=== PATIENT | male | born 1955 | race Caucasian/White ===

== ENCOUNTER 2021-12-19 00:57 | Day surgery (SDC) | payer MEDICARE, OTHER, SELFPAY ==
[2021-12-12 09:27] VITALS: BMI 25.9
--- NOTE | 2021-12-18 14:02 | WPDGICN ---
Assessment and Plan Assessment and plan (1) Colon cancer screening: Code(s): Z12.11 - Encounter for screening for malignant neoplasm of colon Status: Acute Assessment and Plan: Colonoscopy with possible biopsy or polypectomy or cautery or injection of substances. GI Consult Note Consult date/time: 12/18/21 14:02 HPI: Theron Lipscomb is a 66 year old male Referred because he was found have a positive Cologuard test. He has no family history of colon cancer. He has not seen blood in his stools. Review of Systems Review of Systems: All systems reviewed & are unremarkable except as noted in HPI and below PMFSH Past Medical History Medical History HTN (hypertension) Surgical History Surgical History H/O colonoscopy Social History Social History Smoking status: Never smoker Alcohol intake: current Drinks per week: 14 Alcohol use details: 2 glasses of wine nightly Substance use: never Substance use type: does not use Living arrangements: with family Spiritual care concerns: No Meds Home Medications and Allergies Home Medications Medication Instructions Recorded Confirmed Type lisinopril 20 mg PO DAILY 12/12/21 12/12/21 History sildenafil (pulm.hypertension) 20 mg PO DAILY 12/12/21 12/12/21 History Allergies Allergy/AdvReac Type Severity Reaction Status Date / Time No Known Allergies Allergy Verified 12/19/21 06:19 Exam Const: General: alert Orientation/consciousness: patient oriented x3 Resp: Auscultation: clear to auscultation bilaterally Cardio: Rhythm: regular rhythm GI: GI Palp: Yes Soft to palpation and No Tenderness to palpation present (GI) Neuro: General: patient oriented x3
[2021-12-19 06:20] VITALS: BP 154/100; PULSE 88; RESP 18; TEMP 36.6; O2SAT 100; BMI 23.6
[2021-12-19] MEDS: LACTATED RINGERS 1,000 ML 150 ML IV CONT (06:30)
--- NOTE | 2021-12-19 06:47 | WPDANESEPPF ---
Anes - Initial Pre Proc Eval Procedure: Operation Date: 12/19/21 07:30 Proposed Procedures p Colonoscopy - Sonido Art MD Date/Time: 12/19/21 06:47 Surgeon: Sonido Art MD Pre Op Diagnosis: positive cologuard Patient Data Age: 66 Gender: M Height: 1.7 m Weight: 68.6 kg Last Vital Signs Temp 36.6 C 12/19/21 06:20 Pulse 88 12/19/21 06:20 Resp 18 12/19/21 06:20 BP 154/100 H 12/19/21 06:20 Pulse Ox 100 12/19/21 06:20 Allergies Allergy/AdvReac Type Severity Reaction Status Date / Time No Known Allergies Allergy Verified 12/19/21 06:19 Home Medications Medication Instructions Recorded Confirmed Type lisinopril 20 mg PO DAILY 12/12/21 12/12/21 History sildenafil (pulm.hypertension) 20 mg PO DAILY 12/12/21 12/12/21 History Patient hx anesthesia problems: none Family hx anesthesia problems: none Results Review: All pre-operative results and documents have been reviewed as part of the pre-operative evaluation. [facility] Past Medical History Medical History (Updated 12/19/21 @ 06:47 by Theron Negrete MD) HTN (hypertension) Surgical History Surgical History (Updated 12/19/21 @ 06:47 by Theron Negrete MD) H/O colonoscopy Social History Social History Smoking status: Never smoker Alcohol intake: current Drinks per week: 14 Alcohol use details: 2 glasses of wine nightly Substance use: never Substance use type: does not use Living arrangements: with family Spiritual care concerns: No Anes - Eval Final PreProcedure Day of Procedure 12/19/21 06:47 Patient weight: normal Heart: regular rate and rhythm Lungs: clear to auscultation Airway: Mallampati scale class II Neurological: alert and oriented Last oral intake: >/= 8 hours ASA classification: II Emergent: no Anesthetic plan: proceed Anesthesia type and monitoring: general GIVS and standard monitoring Results Review: All pre-operative results and documents have been reviewed as part of the pre-operative evaluation. Informed Consent: The patient's anesthetic plan and its attendant risks and benefits were discussed with the patient/family/POA. Questions were solicited and answers provided to the satisfaction of the patient/family/POA.
[2021-12-19 07:55] VITALS: BP 120/84; PULSE 77; RESP 21; O2SAT 100
[2021-12-19 08:05] VITALS: BP 148/99; PULSE 75; RESP 17; O2SAT 100
[2021-12-19 08:15] VITALS: BP 152/99; PULSE 78; RESP 18; O2SAT 100
== END 2021-12-19 08:26 | disposition home or self-care (01) ==
PROVIDERS: PCP Internal Medicine; Visit Provider Internal Medicine Gastroenterology
PROC: 0DJD8ZZ Inspection of Lower Intestinal Tract, Via Natural or Artificial Opening Endoscopic (ICD-10-PCS; CPT 45378; principal; 2021-12-19 07:30)
DX: Z12.11 Encounter for screening for malignant neoplasm of colon (principal); D12.8 Benign neoplasm of rectum; D12.5 Benign neoplasm of sigmoid colon; K63.5 Polyp of colon; K57.30 Diverticulosis of large intestine without perforation or abscess without bleeding; R19.5 Other fecal abnormalities; I10 Essential (primary) hypertension
CPT/HCPCS: 45385; 45380; 88305; J2704; J7120

== ENCOUNTER 2023-01-25 11:42 | Outpatient (CLI) | payer MEDICARE, OTHER, SELFPAY ==
--- NOTE | 2023-01-25 12:48 | ECG_ITS ---
Measurements Intervals [place] Rate: 72 P: 81 [place]: 142 QRS: 67 QRSD: 98 T: 63 QT: 416 QTc: 457 Interpretive Statements SINUS RHYTHM NONSPECIFIC T-WAVE ABNORMALITY BORDERLINE ECG NO PREVIOUS ECG AVAILABLE FOR COMPARISON Electronically Signed On 01-25-2023 16:07:39 CDT by Antonio Tipton M.D.
[2023-01-25 13:33] LABS: Basophils Absolute Auto 0.1 K/mm3 (0.0-0.1); Basophils Percent Auto 0.7 % (0.2-1.2); Eosinophils Absolute Auto 0.1 K/mm3 (0-0.3); Eosinophils Percent Auto 1.3 % (0-4.4); Hematocrit 46.3 % (42.0-52.0); Hemoglobin 15.3 g/dL (14.0-18.0); Immature Granulocyte Absolute 0.04 K/mm3 (0.00-0.031); Immature Granulocyte Percent A 0.4 % (0-0.5); Lymphocytes Absolute Auto 2.07 K/mm3 (0.9-3.2); Mean Corpuscular Hemoglobin 31.3 pg (26-34); Mean Corpuscular Volume 94.7 fl (80-100); Mean Platelet Volume 9.5 fl (7.4-10.4); Monocytes Absolute Auto 0.9 K/mm3 (0.1-0.6); Monocytes Percent Auto 8.2 % (2.6-8.5); Neutrophils Absolute Auto 7.7 K/mm3 (1.3-6.7); Neutrophils Percent Auto 70.4 % (45.5-73.1); Platelet Count Result 331 k/mm3 (150-375); Red Blood Count 4.89 M/mm3 (4.6-6.20); Red Cell Distribution Width 12.1 % (11.5-14.5); White Blood Count 10.9 K/mm3 (4.5-10.0)
[2023-01-25 13:42] LABS: Albumin Level 4.6 g/dL (3.5-5.1); Anion Gap 5 mmol/L (8-16); Blood Urea Nitrogen 20 mg/dL (9-20); Calcium 9.2 mg/dL (8.4-10.2); Carbon Dioxide 31 mmol/L (22-30); Chloride 102 mmol/L (98-107); Estimated Glomerular Filt Rate > 60; Glucose 80 mg/dL (65-110); Potassium 4.4 mmol/L (3.4-5.0); Sodium 138 mmol/L (137-145)
[2023-01-25 13:46] LABS: Urine Cotinine NEGATIVE
[2023-01-25 13:58] LABS: Hemoglobin A1C 5.3 % (<5.7)
== END 2023-01-25 11:43 | disposition home or self-care (01) ==
LOC: ANHSURGERY 11:47
PROVIDERS: PCP Internal Medicine; Visit Provider Orthopaedic Surgery
DX: M16.11 Unilateral primary osteoarthritis, right hip (principal); Z01.818 Encounter for other preprocedural examination; R94.31 Abnormal electrocardiogram [ECG] [EKG]
CPT/HCPCS: 80048; 80307; 82040; 83036; 85025; 87081; 93005

== ENCOUNTER 2023-02-01 10:03 | Outpatient (CLI) | payer MEDICARE, OTHER, SELFPAY | END 2023-02-01 10:04 | disposition home or self-care (01) | LOC: ANHSURGERY 10:06 | PROVIDERS: PCP Internal Medicine; Visit Provider Orthopaedic Surgery | DX: M16.11 Unilateral primary osteoarthritis, right hip (principal); Z01.818 Encounter for other preprocedural examination | CPT/HCPCS: 87081 ==

== ENCOUNTER 2023-02-08 00:44 | Day surgery (SDC) | payer MEDICARE, OTHER, SELFPAY ==
--- NOTE | 2023-01-25 11:44 | PC.NURSE ---
PRE-OP INSTRUCTIONS, PLEASE READ CAREFULLY Report to the Outpatient Waiting Room, entrance under the green pavilion located off [facility], at time _0600_ on date _02/08/23_. Planned Procedure Time: _0730_. PACK A SMALL OVERNIGHT BAG AND LEAVE IN THE CAR ALONG WITH YOUR WALKER Time changes happen often and if your time is changed the preop area will call you the afternoon before. - You and your visitor will be asked to self-screen and do not enter if you have any COVID symptoms. - A mask is optional within the hospital at this time. -VISITING HOURS 8AM-8PM Patients may have clear liquids (water, carbonated beverages, clear teas, apple juice) until 3 hours prior to surgery (0430 AM) with a maximum of 20 ounces. - No food from midnight until time of surgery Take the following medications with a SIP of water the morning of surgery: _NONE_ DO NOT STOP ANY OF YOUR OTHER PRESCRIPTION MEDICATIONS PRIOR TO SURGERY ?EXCEPT THE FOLLOWING Medications to discontinue per _DICLOFENAC 7 DAYS PRIOR TO SURGERY, Date to take last dose 01/31/23_ Please no make-up, nail danish, hairspray, perfume, deodorant, or body powder the day of surgery. No jewelry (including any body piercings) or valuables the day of surgery, leave them at home. Please take a shower or bath the night before, or the morning of, surgery with an antibacterial soap. Wear comfortable, loose fitting clothing. Children are encouraged to wear pajamas. - Jewelry must be removed prior to entering the operating room. Rings and piercings that are not removed may be cut off. - The hospital will not accept responsibility for valuables. - Please leave all valuables, including medications, at home the day of surgery. If you are going home after surgery, a licensed putaway driver must drive you home. - NO public transportation without another adult if you receive anesthesia. - We recommend that an adult stay with you for 24 hours following discharge. - We also recommend that you do not drive, make important decision, drink alcoholic beverages, or take any drugs that were not prescribed by your health care provider for at least 24 hours after your discharge time. Follow any additional instructions given to you from your surgeon. If you or anyone in your household have experienced Covid symptoms in the past week, please notify your surgeon or the nurse liaison at the phone number below for possible testing. Telephone instructions given to _PATIENT & SPOUSE (SHO)__and asked if any additional questions and then verbalized understanding. Patient advised to call surgeon office or pre surgery nurse liaison [phone] if any additional questions.
[2023-01-25 12:12] VITALS: BP 170/92; PULSE 66; RESP 20; TEMP 36.8; O2SAT 100; BMI 23.1
--- NOTE | 2023-02-05 12:53 | PM.IMHP ---
H&P: HPI History of Present Illness Date/Time: 02/05/23 12:53 Chief Complaint: Severe osteoarthritis right hip Narrative: 67-year-old male patient of Dr. Swan who presents today for a right anterior total hip arthroplasty. Patient has been having symptoms in his hips for years. Last year has gotten a lot worse. Patient has been taking diclofenac recently and this has helped a little bit with his symptoms. He does have severe type 1 osteoarthritis in the right hip. Patient feels that he is having symptoms bad enough on a daily basis that are affecting his daily life that he would rather proceed with surgery at this point rather continue nonsurgical treatment. Most of his pain is in the anterior groin and proximal thigh. Review of Systems Review of Systems: All systems reviewed & are unremarkable except as noted in HPI and below PMFSH Past Medical History Medical History HTN (hypertension) Surgical History Surgical History H/O colonoscopy Social History Social History Smoking status: Never smoker Second hand tobacco smoke exposure: No Additional smoking assessment comments: PT DENIES ALL FORMS OF TOBACCO USE Alcohol intake: current Drinks per week: 14 Alcohol use details: 2 GLASSES WINE/NIGHT Substance use: current Substance use type: marijuana Other substance usage details: 1-2 HITS 2-3 XWEEK FOR SLEEP Last use: 01/22/23 Living arrangements: with family Spiritual care concerns: No Meds Home Medications and Allergies Home Medications Medication Instructions Recorded Confirmed Type lisinopril 20 mg tablet 20 mg PO DAILY 12/12/21 01/25/23 History sildenafil (pulm.hypertension) 20 20 mg PO DAILY PRN Sexual Activity 12/12/21 01/25/23 History mg tablet Ketocomnazole See Rx Instructions .Route 01/25/23 01/25/23 History .COMPLEX PRN Itching celecoxib 200 mg capsule (Celebrex) 200 mg PO DAILY 01/25/23 01/25/23 History diclofenac sodium 75 mg 75 mg PO BID 01/25/23 01/25/23 History tablet,delayed release magnesium 200 mg tablet 400 mg PO DAILY 01/25/23 01/25/23 History Allergies Allergy/AdvReac Type Severity Reaction Status Date / Time No Known Allergies Allergy Verified 01/25/23 12:03 Exam Narrative: 67-year-old male alert pleasant. He is 5 ft 6 and 155 lb. His right hip flexes to 90? with lateral hip and anterior groin pain. Internal rotation is 0 external rotation to 20 both causing him the same groin pain. Stinchfield maneuver caused him lateral hip and anterior groin pain. He has normal abduction strength and minimal tenderness over the greater trochanter. Skin around the hip and groin crease are normal. 2+ posterior artery pulse absent dorsalis pedis pulse. No edema in lower extremity. He walks with a mild limp. Resp: Auscultation: clear to auscultation bilaterally Cardio: Rate: regular rate Rhythm: regular rhythm Assessment and Plan Assessment and plan (1) Hip arthritis: Code(s): M16.10 - Unilateral primary osteoarthritis, unspecified hip Status: Acute Plan 67-year-old male who has severe osteoarthritis of the right hip with continued symptoms. Again he feels this point is ready to proceed with total hip arthroplasty rather continue to treat this nonsurgically. Surgical procedures well as the risks and complications were discussed in detail all questions were answered and we will proceed. Patient will stop his diclofenac 1 week prior to surgery and start Celebrex 200 mg. He will see his primary care doctor pre-surgical clearance. We will plan use Eliquis for DVT prophylaxis postoperatively. The patient has Chem panel is all within normal limits creatinine 0.70 hemoglobin is 15.3 and platelets were 331. Patient's nasal swab was negative
[2023-02-08] VITALS (15 sets, daily range): BP systolic 107–172; BP diastolic 64–92; PULSE 57–112; RESP 14–20; TEMP 36–37.3; O2SAT 95–100
--- NOTE | ~2023-02-08 | XR_ITS ---
EXAMINATION: XR hip RT 1V w AP pelvis DATE: 02/08/2023 12:33 INDICATION: Anterior approach right total hip arthroplasty TECHNIQUE: Anteroposterior and cross-table lateral views of the right hip were obtained. COMPARISON: None. FINDINGS: Noncemented right total hip arthroplasty which appears well seated in near anatomic alignment. Surgic al drain and small amount of gas are seen at the operative bed. No fracture. Mild osteoarthritis at t he left hip. Gamble catheter. IMPRESSION: 1. Right total hip arthroplasty in near-anatomic alignment, negative for postoperative purposes. Reviewed, dictated and finalized at location B. IMPRESSION: 1. Right total hip arthroplasty in near-anatomic alignment, negative for postop erative purposes.
--- NOTE | ~2023-02-08 | XR_ITS ---
EXAMINATION: XR surgery orthopedic DATE: 02/08/2023 10:58 INDICATION: Right hip arthroplasty. TECHNIQUE: A single intraoperative fluoroscopic view of right hip was comparison obtained. I was not present. Fluoroscopy exposure time was 49 seconds. COMPARISON: None. FINDINGS: There is a total right hip arthroplasty in near-anatomic alignment. No fracture. IMPRESSION: 1. Total right hip arthroplasty in near-anatomic alignment. Reviewed, dictated and finalized at location A.
[2023-02-08] MEDS: ACETAMINOPHEN 500 MG TABLET 1000 MG PO ×2 (06:09→13:20)
[2023-02-08] MEDS: VANCOMYCIN 1,000 MG/NS 250 ML BAG 250 MG IVPB (06:30)
[2023-02-08] MEDS: LACTATED RINGERS 1,000 ML 30 ML IV CONT ×2 (06:30→11:20)
[2023-02-08] MEDS: TRANEXAMIC ACID 1,000MG/ISO100 1,000 MG/100 ML BAG 200 MG IVPB (07:00)
--- NOTE | 2023-02-08 07:08 | WPDANESEPPF ---
Anes - Initial Pre Proc Eval Procedure: Operation Date: 02/08/23 07:30 Proposed Procedures p Right Total Hip Arthroplasty Anterior Approach - Fran Pimentel MD Date/Time: 02/08/23 07:08 Surgeon: Fran Pimentel MD Pre Op Diagnosis: oa right hip Patient Data Age: 67 Gender: M Height: 1.7 m Weight: 67.4 kg Last Vital Signs Temp 36.2 C L 02/08/23 06:36 Pulse 57 L 02/08/23 06:36 Resp 16 02/08/23 06:36 BP 172/91 H 02/08/23 06:36 Pulse Ox 100 02/08/23 06:36 O2 Del Method Room Air 02/08/23 06:36 Allergies Allergy/AdvReac Type Severity Reaction Status Date / Time No Known Allergies Allergy Verified 02/08/23 06:06 Home Medications Medication Instructions Recorded Confirmed Type lisinopril 20 mg tablet 20 mg PO DAILY 12/12/21 02/08/23 History sildenafil (pulm.hypertension) 20 20 mg PO DAILY PRN Sexual Activity 12/12/21 02/08/23 History mg tablet Ketocomnazole See Rx Instructions .Route 01/25/23 02/08/23 History .COMPLEX PRN Itching celecoxib 200 mg capsule (Celebrex) 200 mg PO DAILY 01/25/23 02/08/23 History diclofenac sodium 75 mg 75 mg PO BID 01/25/23 02/08/23 History tablet,delayed release magnesium 200 mg tablet 400 mg PO DAILY 01/25/23 02/08/23 History Patient hx anesthesia problems: none Family hx anesthesia problems: none Results Review: All pre-operative results and documents have been reviewed as part of the pre-operative evaluation. [facility] Past Medical History Medical History HTN (hypertension) Surgical History Surgical History H/O colonoscopy Social History Social History Smoking status: Never smoker Second hand tobacco smoke exposure: No Additional smoking assessment comments: PT DENIES ALL FORMS OF TOBACCO USE Alcohol intake: current Drinks per week: 14 Alcohol use details: 2 GLASSES WINE/NIGHT Substance use: current Substance use type: marijuana Other substance usage details: 1-2 HITS 2-3 XWEEK FOR SLEEP Last use: 01/22/23 Living arrangements: with family Spiritual care concerns: No Anes - Eval Final PreProcedure Day of Procedure 02/08/23 07:08 Patient weight: normal Heart: regular rate and rhythm Lungs: clear to auscultation Airway: Mallampati scale class III Neurological: alert and oriented Last oral intake: >/= 8 hours ASA classification: III Emergent: no Anesthetic plan: proceed Anesthesia type and monitoring: general ETT and standard monitoring Results Review: All pre-operative results and documents have been reviewed as part of the pre-operative evaluation. Informed Consent: The patient's anesthetic plan and its attendant risks and benefits were discussed with the patient/family/POA. Questions were solicited and answers provided to the satisfaction of the patient/family/POA.
--- NOTE | 2023-02-08 07:13 | WPDHPUPDATE1 ---
History and Physical Update Update Date/Time: 02/08/23 07:13 History and Physical has been reviewed, including an updated exam of the patient. There are NO changes in the patient's condition. Risks, benefits, and alternatives have been discussed and questions answered. Patient agrees to proceed with procedure.
[2023-02-08] MEDS: ceFAZolin 2 GM/D5W 50 ML 2 GM/50 ML BAG IVPB (07:27)
[2023-02-08] MEDS: ceFAZolin SODIUM 1 GM VIAL 3 GM (08:17)
[2023-02-08] MEDS: ceFAZolin SODIUM 1 GM VIAL IV PUSH (10:33)
[2023-02-08] MEDS: TRANEXAMIC ACID 1,000 MG/10 ML AMPUL 1000 MG IV PUSH (10:35)
--- NOTE | 2023-02-08 10:56 | W.PM.PROC2 ---
Procedure Note - Detailed Date of Procedure 02/08/23 Pre-op Diagnosis oa right hip Post-op Diagnosis Same Procedure Performed Right total hip arthroplasty direct anterior approach Surgeon Fran Pimentel MD Exercise Manager Aleksey Harry Anesthesia General Description of Procedure Patient was brought to the operating room and general anesthesia was administered. he received 2 g of Ancef weight based vancomycin 1 g of tranexamic acid preoperatively. The feet were padded and the boots applied and the patient transferred to the OS [place] table the right hip prepped draped usual fashion. A 10 cm longitudinal incision was made starting 3 cm lateral to the ASIS. Dissection was carried down to the fascia over the tensor fascia yves which was incised longitudinally over the midportion of the TFL and elevated off the anterior 50% of the TFL muscle. The interval between TFL and rectus femoris developed and crossing branches of ascending lateral femoral circumflex vessels were ligated with suture and divided. Capsule was of exposed anterior retractor placed. The hip abducted internally rotated and the gluteus minimus elevated off the lateral capsule. Standard inverted T capsulotomy was utilized. Femoral neck osteotomy was made according to templating. The femoral head was removed. It was mushroom shaped quite over sized peripherally with huge circumferential osteophytes which were also present on the femoral neck and these were debrided. The acetabulum was exposed. There was a large broken osteophyte posteriorly which was removed and the posterior acetabular wall was quite eburnated. There was also eburnation anterior superiorly in the acetabulum and a huge anterior superior osteophyte. There is also a very large osteophyte inferiorly such that the fovea was completely obliterated. The leg was externally rotated and extended. Removed about 1/2 inch of the tip of the lateral capsule for exposure. There was enough mobility that I did not feel that any release of the conjoined tendon was necessary so this was left alone. Leg was brought back in external rotation and horizontal position traction acetabulum exposed and we carefully under fluoro gradually medialized with a 42 Reamer until the teardrop was exposed. This allowed to us to remove the bridging inferior osteophyte that is band the location of the inferior acetabular ligament. We then reamed with the 45 Reamer and worked up to 49 Reamer and the 49 trial was quite tight. We reamed to the 50 lightly and we found the 50 trial also tight but it seated fully. We chose the 50 pinnacle cup and this was impacted and seated fully at 40? of abduction and appropriate anteversion. Excellent Press-Fit was achieved. This left about 4 or 5 mm of the superior posterior superior shell uncovered. It fit line to line with the posterior rim of the acetabulum and was well under a huge anterior osteophyte. A single screw was placed in the ilium and the 32 inner diameter liner placed without difficulty. We then proceeded to remove the residual inferior acetabular osteophyte and the anterior and anterior superior acetabular osteophyte. We were careful to remove all bone fragments minimize development of heterotopic ossification. The femur was then externally rotated extended and we broached up to a size 5 which had a little bit of torsional wiggle and we broach the size 6 and trialed. The +1 head with the high offset neck was just a little bit loose and the +5 was tight. The. We looked at fluoroscopic AP pelvis +5. Offset was appropriate equal to the other side but we were about 3 or 4 mm longer the other side I felt. We calcar planed and carefully countersunk the broach another 2.5 mm and this had appropriate Shuck but good stability and I felt it had optimal soft tissue tension and it looked about 1 or 2 mm longer than the other side using the lesser trochanters and a line across the erector operator foramina which matched our preoperati
--- NOTE | 2023-02-08 11:24 | P.OPB_ITS ---
Procedure Note - Brief Procedure Note - Brief Date of procedure: 02/08/23 oa right hip Procedure performed: Right anterior total hip arthroplasty Surgeon: WALTER Alvarez Description of procedure: 67-year-old male who underwent right anterior total hip arthroplasty 02/08. I was involved procedure including position patient on the OR table as well as 1st election assistant to the time of surgery. Total time spent was 4hours
[2023-02-08] MEDS: fentaNYL CITRATE INJ (*CRX) 100 MCG/2 ML VIAL 25 MCG IV PUSH ×5 (11:25→12:34)
[2023-02-08] MEDS: SODIUM CHLORIDE 0.9% IV 1,000 ML 125 ML IV CONT (13:00)
--- NOTE | 2023-02-08 13:05 | ADMGEN ---
This patient, Theron Lipscomb, was admitted to Medical Room 257-01. Patient/family oriented to hospital policies and general routines including ID bracelet, bed and alarms, visiting hours, pain management, procedures, bathroom and other care routines, personal items, smoking policy, room service/diet, and visiting hours. Information on how to activate the Rapid Response Team has been discussed. Patient/Family are encouraged to report perceived risks to care and to ask questions if they do not understand what they are told or what they should do.
[2023-02-08] MEDS: oxyCODONE HCL (*CRX) 5 MG TAB IR PO ×2 (13:20→18:49)
[2023-02-08] MEDS: ONDANSETRON INJ 4 MG/2 ML VIAL IV PUSH (13:29)
[2023-02-08] MEDS: MORPHINE SULFATE (*CRX) 2 MG/ML INJ IV PUSH (14:11)
--- NOTE | 2023-02-08 15:42 | PCPTNOTE ---
On 02/08/23, the student, [Stacey Gallo], provided care and completed [facility] documentation on this patient. I have reviewed the student's documentation and agree with the findings.
[2023-02-08] MEDS: ceFAZolin 1 GM/NS 50 ML 1 GM/50 ML BAG IVPB (15:48)
[2023-02-08] MEDS: KETOROLAC 15 MG/ML VIAL (*BKC) IV PUSH ×2 (15:48→21:30)
[2023-02-08] MEDS: diphenhydrAMINE HCl INJ 50 MG/ML VIAL IV PUSH (18:21)
[2023-02-08] MEDS: VANCOMYCIN 1,000 MG/NS 250 ML 1,000 MG/250 ML BAG 250 MG IVPB (18:47)
[2023-02-08] MEDS: FAMOTIDINE 20 MG TABLET PO (21:30)
[2023-02-09] MEDS: ACETAMINOPHEN 500 MG TABLET 1000 MG PO ×2 (00:27→05:15)
[2023-02-09] MEDS: oxyCODONE HCL (*CRX) 5 MG TAB IR PO ×3 (00:27→05:15)
[2023-02-09] MEDS: ceFAZolin 1 GM/NS 50 ML 1 GM/50 ML BAG IVPB (00:31)
[2023-02-09 05:21] VITALS: BP 107/62; PULSE 78; RESP 15; TEMP 37.3; O2SAT 97
[2023-02-09 06:09] LABS: Basophils Percent Auto 0.3 % (0.2-1.2); Eosinophils Percent Auto 0.2 % (0-4.4); Hematocrit 36.1 % (42.0-52.0); Hemoglobin 11.8 g/dL (14.0-18.0); Immature Granulocyte Absolute 0.04 K/mm3 (0.00-0.031); Immature Granulocyte Percent A 0.3 % (0-0.5); Lymphocytes Absolute Auto 1.81 K/mm3 (0.9-3.2); Lymphocytes Percent Auto 14.2 % (18.3-44.2); Mean Corpuscular HGB Conc 32.7 g/dl (32-36); Mean Corpuscular Hemoglobin 31.2 pg (26-34); Mean Corpuscular Volume 95.5 fl (80-100); Mean Platelet Volume 10.1 fl (7.4-10.4); Monocytes Absolute Auto 1.5 K/mm3 (0.1-0.6); Neutrophils Absolute Auto 9.3 K/mm3 (1.3-6.7); Platelet Count Result 194 k/mm3 (150-375); Red Blood Count 3.78 M/mm3 (4.6-6.20); White Blood Count 12.8 K/mm3 (4.5-10.0)
[2023-02-09 06:17] LABS: Anion Gap 1 mmol/L (8-16); Blood Urea Nitrogen 14 mg/dL (9-20); Carbon Dioxide 30 mmol/L (22-30); Chloride 106 mmol/L (98-107); Estimated CRCL calculation 72 ml/min; Estimated Glomerular Filt Rate > 60; Glucose 95 mg/dL (65-110); Potassium 3.3 mmol/L (3.4-5.0); Sodium 137 mmol/L (137-145)
[2023-02-09] MEDS: VANCOMYCIN 1,000 MG/NS 250 ML 1,000 MG/250 ML BAG 200 MG IVPB (06:19)
--- NOTE | 2023-02-09 08:12 | PM.DS ---
DS: Admitting Diagnosis Discharge Date February 09, 2023 Admitting Diagnosis Advanced osteoarthritis right hip DS: Discharge Diagnosis Discharge Diagnosis Plan Right total hip arthroplasty DS: Summary Hospital Course Reason for hospitalization: Patient was admitted for antibiotics overnight and physical therapy following his right total hip arthroplasty Hospital Course: Patient has had an unremarkable postoperative course except for rather severe nausea and some vomiting yesterday which did not respond to Zofran or hydroxyzine but responded extremely well to 50 mg IV Benadryl. He has had no further nausea since yesterday afternoon. He has been with physical therapy yesterday and up to the bathroom several times last night and has minimal discomfort in his right hip and is bearing full weight without difficulty using the walker for balance. His BMP is normal except for calcium of 8.0 this morning and his hemoglobin is 11.8 platelets [id number]. His wound is dry without swelling. He has no swelling in the leg has intact sensation and motor function of the right foot is alert and oriented and doing very well. He is ready to be discharged after morning physical therapy. He it is to follow-up with me in about 10 days in the office and if he has any problems he is instructed to call. Time Spent with Patient Time attestation: Total time spent providing and/or coordinating discharge services: DS: Data Data Completed and Pending Labs on day of discharge: Labs from last 24 hours 02/09/23 05:32 WBC 12.8 H RBC 3.78 L Hgb 11.8 L D Hct 36.1 L MCV 95.5 MCH 31.2 MCHC 32.7 RDW 13.0 Plt Count 194 MPV 10.1 Immature Gran % (Auto) 0.3 Neut % (Auto) 73.0 Lymph % (Auto) 14.2 L [place] % (Auto) 12.0 H Eos % (Auto) 0.2 Baso % (Auto) 0.3 Lymph # (Auto) 1.81 [place] # (Auto) 1.5 H Eos # (Auto) 0.0 Baso # (Auto) 0.0 Abs Immat Gran (auto) 0.04 H Absolute Neuts (auto) 9.3 H Absolute Nucleated RBC 0.0 Nucleated RBC % 0.0 Sodium 137 Potassium 3.3 L Chloride 106 Carbon Dioxide 30 Anion Gap 1 L BUN 14 D Creatinine 0.80 Estim Creat Clear Calc 72 Estimated GFR > 60 Glucose 95 Calcium 8.0 L Discharge Plan Discharge Patient Disposition: Home, Self-Care Discharge Instructions: [facility], [facility] [address] [place] [address] POST-OPERATIVE DISCHARGE INSTRUCTIONS ANTERIOR TOTAL HIP ARTHROPLASTY 1. Move toes/feet up and down every hour while awake. 2. Be up walking every hour while awake. 3. Use cane in hand opposite of side of hip surgery or walker as comfort allows. Avoid sitting in a chair unless eating, receiving visitors or using the toilet. 4. When resting, lie on back with leg elevated above heart to minimize swelling. Significant swelling could indicate a blood clot and if this occurs, call the office (or go to the ER) to have a venous ultrasound performed. 5. Wound Care: Keep dry sponge on wound for 2 weeks. Use minimal tape. 6. Follow weight bearing status as instructed. 7. May shower with dressing off. Please be sure to take the Celebrex for 9 more days for a total of 10 doses after surgery and then stop. This is to prevent heterotopic bone formation. Please take the stool softeners the docusate sodium sennosides (varsha Colace) and the MiraLax on a scheduled basis to prevent severe constipation which can occur while taking narcotics. When you no longer needs the oxycodone that he will no longer need the stool softeners. Do not take them as needed but take them on a scheduled basis as constipation can be quite severe. And make sure you do not take the diclofenac anymore. The Keflex for 7 days as to minimize the risk of infection occurring in your hip replacement. Stand Alone Forms: General Discharge Instructions Discharge Medications: New celecoxib [Celebrex] 200 mg Capsule 200 mg P
[2023-02-09] MEDS: FAMOTIDINE 20 MG TABLET PO (08:21)
[2023-02-09] MEDS: SENNA/DOCUSATE SODIUM TABLET 2 TAB PO (08:22)
[2023-02-09] MEDS: polyethylene glycoL 3350 17 GM POWD.PACK PO (08:23)
[2023-02-09] MEDS: CELECOXIB 200 MG CAPSULE PO (08:23)
[2023-02-09] MEDS: APIXABAN 2.5 MG TABLET PO (08:23)
[2023-02-09] MEDS: CEPHALEXIN 500 MG CAPSULE PO (08:51)
== END 2023-02-09 10:50 | disposition home or self-care (01) ==
LOC: ANHSURGERY 05:51 → ANH2MED 12:46
PROVIDERS: Physician Assistant Surgical; PCP Internal Medicine; Visit Provider Orthopaedic Surgery
PROC: (CPT 27130; principal; 2023-02-08 07:30)
DX: M16.11 Unilateral primary osteoarthritis, right hip (principal); R11.2 Nausea with vomiting, unspecified; I10 Essential (primary) hypertension
CPT/HCPCS: 27130; 36415; 73501; 80048; 85025; 86850; 86900; 86901; 97110; 97116; 97161; 97165; 97535; 99199; A9270; C1776; J0171; J0690; J1100; J1170; J1200; J1885; J2250; J2270; J2405; J2704; J2710; J2795; J3010; J3370; J7030; J7040; J7120

== ENCOUNTER → 2025-06-18 11:05 | Outpatient (REF) | payer MEDICARE, OTHER, SELFPAY ==
--- NOTE | 2025-06-18 11:05 | S_PTH ---
PATIENT: Theron Lipscomb LOC: [facility] U#:[id number] AGE/SX: 70/M ROOM: RE06/18/[address]: Titus Camp MD : 1955 BED: DIS: SPEC #: [id number] RECD: 06/18/25 12:59 STATUS: ASHLEE REDanny #: [id number] EMILE: 06/18/25 11:[address]: Titus Camp DEPT: [facility] Surgical RECD BY: Yuliet Rodriguez ENTERED: 06/18/25 12:59 SP TYPE: Surgical OTHR DR: Rajiv SwanMD Tissues: A - Skin Procedures: Hematoxylin and Eosin Stain Gross and Microscopic Level 4
--- OUTSIDE RECORDS SUMMARY | 2025-06-18 11:55 | XMS_ITS | Clinical Summary ---
Author Organization [facility] Address [address] Attn: [place] [id number] Care Team Providers Care Public Works Technician Name Role Phone Unavailable Primary Care Provider Unavailabl e Medications diclofenac sodium (VOLTAREN) 75 mg Tablet, Delayed Release (E.C.) Take 1 Tablet (75 mg) by mouth 2 times daily. 60 Tablet 1 11/20/2022 Active ALPRAZolam (Xanax) 0.25 mg tablet Take 1 Tablet (0.25 mg) by mouth 3 times daily as needed. 60 Tablet 2 01/29/2023 9:44 AM CDT 01/26/2023 Active celecoxib (CeleBREX) 200 mg capsule Take 1 Capsule (200 mg) by mouth daily. 9 Capsule 02/09/2023 11:18 AM CDT 02/09/2023 Active acetaminophen (TYLENOL) 500 mg tablet Take 2 Tablets (1,000 mg) by mouth every 6 hours. 120 Tablet 02/09/2023 Active polyethylene glycol (MIRALAX) 17 gram Powder in Packet Dissolve 1 Packet (17 Grams) in beverage and drink by mouth once daily in the morning. 30 Each 02/09/2023 11:18 AM CDT 02/09/2023 Active sennosides-docu sate sodium (SENNA-S) 8.6-50 mg tablet Take 2 Tablets by mouth 2 times daily. 120 Tablet 02/09/2023 11:18 AM CDT 02/09/2023 Active oxyCODONE (ROXICODONE) 5 mg tablet Take 1 Tablet (5 mg) by mouth every 4 hours as needed. Max Daily Amount: 30 mg 40 Tablet 02/09/2023 11:18 AM CDT 02/09/2023 Active lisinopriL (PRINIVIL) 40 mg tablet Take 1 tablet(s) by mouth daily 90 Tablet 12/04/2024 Active ketoconazole (NIZORAL) 2 % Shampoo Shampoo twice weekly to scalp 120 mL 6 06/06/2025 Active Encounters Date Type Department Care Team Description 05/15/2025 External Device Data [facility] ABSTRACTION Provider, Abstract 04/17/2025 External Device Data [facility] ABSTRACTION Provider, Abstract from Last 3 Months Social History Tobacco Use Types Packs/Day Years Used Date Smoking Tobacco: Never Assessed Sex and Gender Information Value Date Recorded Sex Assigned at Not on file Legal Sex Male 3:27 PM CDT Gender Identity Not on file Sexual Orientation Not on file Plan of Treatment Health Maintenance Due Date Last Done Comments DTAP/TDAP/TD VACCINES (1 - Tdap) 1973 COLORECTAL SCREENING 1999 Colorectal Cancer Screening 1999 FIT-DNA Q 3 years 1999 FIT/FOBT Q 1 year 1999 Flex Sig/CT Colonography Q 5 years 1999 PNEUMOCOCCAL VACCINE 50+ YEARS (1 of 1 - PCV) 06/11/20 04 ZOSTER VACCINE (1 of 2) 2004 INFLUENZA VACCINE (#1) 2025 RSV VACCINE (60+ or ) (1 - 1-dose 75+ series) 2029 Insurance RX [employer] (INTERNAL) [facility] [employer] RX [employer] Medicare Part D
--- OUTSIDE RECORDS SUMMARY | 2025-06-18 11:55 | XMS_ITS | Encounter Summary ---
Author Organization [facility] Address [address] [place] [address] Care Team Providers Care Pressure Steamer Tender Name Role Phone Rajiv Swan MD Primary Care Provider [phone] Encounter Details Date Type Department Care Team (Late st Contact Info) Description 03/27/2021 Lab Requisition [facility] DermPath Lab [address] [place] [phone] Domingo Pope MD [address], [place] [id number] Social History Tobacco Use Types Packs/Day Years Used Date Smoking Tobacco: Never Assessed Sex and Gender Information Value Date Recorded Sex Assigned at Not on file Legal Sex Male 4:25 PM CDT Gender Identity Not on file Sexual Orientation Not on file documented as of this encounter Plan of Treatment Not on file documented as of this encounter Procedures Procedure Name Priority Date/Time Associated Diagnosis Comments DERMATOPATHOLOGY Routine 03/25/2021 3:33 AM CDT documented in this encounter Results * DERMATOPATHOLOGY (03/25/2021 3:33 AM CDT) Case Report Dermatopathology Report Case: [id number] Authorizing Provider: Domingo Pope MD Collected: 03/25/2021 03:33 AM Ordering Location: [facility] DermPath Lab Received: 03/27/2021 08:00 AM Pathologist: Cinthya Mendez MD Specimens: A) - Skin, right clavicle B) - Skin, right upper back 12:49 PM CDT DERMATOPATHOLOGY LABORATORY Final Diagnosis Specimen A. SKIN, right clavicle: BASAL CELL CARCINOMA, NODULAR TYPE (C44.519) Specimen B. SKIN, right upper back: SEBORRHEIC KERATOSIS, MACULAR (L82.1) 12:49 PM CDT DERMATOPATHOLOGY LABORATORY at 1249 CDT Clinical History A: BCCA vs SCCA. Path # [id number]. B: Sk vs MM. Path # [id number]. 12:49 PM CDT DERMATOPATHOLOGY LABORATORY Gross Description Specimen A: Received is one formalin filled container labeled with the patient's name and designated right clavicle. The specimen consists of a shave biopsy measuring [id number]. Jar 0. Specimen B: Received is one formalin filled container labeled with the patient's name and designated right upper back. The specimen consists of a shave biopsy measuring 7o5n6oc. Jar 0. 12:49 PM CDT DERMATOPATHOLOGY LABORATORY Microscopic Description Specimen A. SKIN, right clavicle: Within the dermis there are aggregates of basaloid cells with a high nuclear to cytoplasmic ratio and peripheral palisading. Specimen B. SKIN, right upper back: Sections show a relatively broad, flat proliferation of small keratinocytes. The surface is gently papillated, and there is increased basilar pigmentation. 12:49 PM CDT DERMATOPATHOLOGY LABORATORY Disclaimer An external and internal positive and negative controls are appropriate for the histochemical, immunohistochemical and immunofluorescence stain(s) in this case (if any), except where stated explicitly. The performance characteristics of the stain(s) cited in this report were developed and its performance characteristic determined by the Dermatopathology Laboratory at [facility], directed by Dr. Clarita Jean. These tests need not be, and therefore are not, approved by the [place] Food and Drug Administration. The tests are used for clinical purposes. Billing Codes Specimen Charges Stain Charges 98311 36276 1 1 12:49 PM CDT DERMATOPATHOLOGY LABORATORY Embedded Images 12:49 PM CDT DERMATOPATHOLOGY LABORATORY Pathology/Cytology TISSUE SPECIMEN FROM SKIN / Unknown 03/25/2021 3:33 AM CDT 03/27/2021 8:00 AM CDT Miscellaneous samples (specimen) TISSUE SPECIMEN FROM SKIN / Unknown 03/25/2021 3:33 AM CDT 03/27/2021 8:00 AM CDT us Domingo Pope MD LAB - PATHOLOGY/CYTOLOGY ORDER GRETA Final Result DERMATOPATHOLOGY LABORATORY [facility] - Department of Dermatology [facility] Specialized Medicine [address] [place] [address], [address] [phone] documented in this encounter Visit Diagnoses Not on filedocumented in this encounter Care Teams Pressure Steamer Tender Relationship Specialty Start Date End Date Rajiv Swan MD [address] [place] [address] [address] [place] [address] PCP - General 12/25/21 documented as of this encounter
--- OUTSIDE RECORDS SUMMARY | 2025-06-18 11:55 | XMS_ITS | Clinical Summary ---
Author Organization [facility] Address [address] [place] [address] Care Team Providers Care Drama Director Name Role Phone Rajiv Swan MD Primary Care Provider [phone] Source Comments [facility],non-owned Affiliates and Associated Physician Practices is amultiple site organization consisting of ambulatory clinics and hospital sitesin [place], [place], [place] and [place]. This disclosure is being madepursuant to the Care Everywhere program and may not contain all information available regarding this patient. Last updated 18.[facility] Social History Tobacco Use Types Packs/Day Years Used Date Smoking Tobacco: Never Assessed Sex and Gender Information Value Date Recorded Sex Assigned at Not on file Legal Sex Male 4:25 PM CDT Gender Identity Not on file Sexual Orientation Not on file Plan of Treatment Health Maintenance Due Date Last Done Comments COLOGUARD (AGES 45-75) - COL ON CA SCREENING 1955 COLON MONITORING 1955 COLONOSCOPY - COLON CA SCREENING 1954 CT COLONOGRAPHY - COLON CA SCREENING 1955 Colorectal Cancer Screening 1955 FIT - COLON CA SCREENING 1954 FLEX SIG - COLON CA SCREENING 1954 LIPID TESTING 1955 HEPATITIS C SCREENING 06/06/1972 DTAP/TDAP/TD VACCINES (1 - Tdap) 1973 PNEUMOCOCCAL VACCINE 50+ (1 of 1 - PCV) 2004 ZOSTER VACCINE (1 of 2) 2004 DEPRESSION SCREENING 08/09/2024 COVID-19 VACCINE (1 - 2023-2 5 season) 2025 INFLUENZA VACCINE (#1) 2025 Respiratory Syncytial Virus (RSV) Vaccine Pt: or over 60 yrs (1 - 1-dose 75+ series) 2029 HEPATITIS B VACCINE Aged Out No longe r eligible based on patient's age to complete this topic HIB VACCINE Aged Out No longer eligi ble based on patient's age to complete this topic HPV VACCINE Aged Out No longer eligi ble based on patient's age to complete this topic MENINGOCOCCAL (Group B) VACC INE SHARED DECISION-MAKING Aged Out No longer eligibl e based on patient's age to complete this topic MENINGOCOCCAL GROUPS A/C/Y/W VACCINE Aged Out No longer eligible b ased on patient's age to complete this topic Insurance MEDICARE Care Teams Drama Director Relationship Specialty Start Date End Date Rajiv Swan MD [address] [place] [id number] PCP - General 12/25/21
--- OUTSIDE RECORDS SUMMARY | 2025-06-18 11:55 | XMS_ITS | Encounter Summary ---
Author Organization [facility] Health Address [address] [place] [address] Care Team Providers Care Crumb Packer Name Role Phone Rajiv Swan MD Primary Care Provider [phone] Encounter Details Date Type Department Care Team (Late st Contact Info) Description 09/17/[address] [facility] DermPath Lab [address] [phone] Domingo Pope MD [address] [place] [address] Social History Tobacco Use Types Packs/Day Years [...] Priority Date/Time Associated Diagnosis Comments DERMATOPATHOLOGY Routine 09/16/2021 12:0 0 AM FIRE SPRINKLER SERVICE TECHNICIAN documented in this encounter Results * DERMATOPATHOLOGY (09/16/2021 12:00 AM FIRE SPRINKLER SERVICE TECHNICIAN) Case Report Dermatopathology Report Case: [id number] Authorizing Provider: Domingo Pope MD Collected: 09/16/2021 12:00 AM Ordering Location: [facility] DermPath Lab Received: 09/17/2021 04:49 PM Pathologist: Shikha Jean MD Specimen: Skin, left upper back 2 4:01 PM FIRE SPRINKLER SERVICE TECHNICIAN DERMATOPATHOLOGY LABORATORY Final Diagnosis Specimen A. SKIN, left upper back: PIGMENTED SEBORRHEIC KERATOSIS, IRRITATED (L82.1) 2 4:01 PM FIRE SPRINKLER SERVICE TECHNICIAN DERMATOPATHOLOGY LABORATORY at [address] [facility] Clinical History SK vs MM. Path # [id number]. 2 4:01 PM [facility] DERMATOPATHOLOGY LABORATORY Gross Description Specimen A: Received is one formalin filled container labeled with the patient's name and designated left upper back. The specimen consists of a shave biopsy measuring [id number], bisected. Jar 0. 2 4:01 PM [facility] DERMATOPATHOLOGY LABORATORY Microscopic Description Specimen A. SKIN, left upper back: Sections show an acanthotic lesion composed of relatively uniform keratinocytes. There is hyperkeratosis and pseudo horn cysts. Pigment is present in the keratinocytes composing this tumor. 2 4:01 PM [facility] DERMATOPATHOLOGY LABORATORY Disclaimer An external and internal positive and negative controls are appropriate for the histochemical, immunohistochemical and immunofluorescence stain(s) in this case (if any), except where stated explicitly. The performance characteristics of the stain(s) cited in this report were developed and its performance characteristic determined by the Dermatopathology Laboratory at [facility], directed by Dr. Clarita Jean. These tests need not be, and therefore are not, approved by the [place] Food and Drug Administration. The tests are used for clinical purposes. Billing Codes Specimen Charges Stain Charges 71165 1 2 4:01 PM [facility] DERMATOPATHOLOGY LABORATORY Embedded Images 2 4:01 PM [facility] DERMATOPATHOLOGY LABORATORY Pathology/Cytolog y TISSUE SPECIMEN FROM SKIN / Unknown 09/16/2021 09/17/2021 4:49 PM [facility] us Domingo Pope MD LAB - PATHOLOGY/CYTOLOGY ORDER GRETA Final Result DERMATOPATHOLOGY LABORATORY [facility] - Department of Dermatology [facility] Medicine [address] [place] [address], [address] [phone] documented in this encounter Visit Diagnoses Not on filedocumented in this encounter Care Teams Crumb Packer Relationship Specialty Start Date End Date Rajiv Swan MD [address] [place] [address] [address] [place] [address] PCP - General 12/25/21 documented as of this encounter
--- OUTSIDE RECORDS SUMMARY | 2025-06-18 11:55 | XMS_ITS | Encounter Summary ---
Author Organization [facility] Health Address [address] [place] [address] Care Team Providers Care Grocery Clerk Name Role Phone Rajiv Swan MD Primary Care Provider [phone] Encounter Details Date Type Department Care Team (Late st Contact Info) Description 05/16/2021 Lab Requisition [facility] DermPath Lab [address] [place] [phone] Domingo Pope MD [address] [place] [address] Social History Tobacco Use Types [...] Priority Date/Time Associated Diagnosis Comments DERMATOPATHOLOGY Routine 05/14/2021 12:0 0 AM CDT documented in this encounter Results * DERMATOPATHOLOGY (05/14/2021 12:00 AM CDT) Case Report Dermatopathology Report Case: [id number] Authorizing Provider: Domingo Pope MD Collected: 05/14/2021 12:00 AM Ordering Location: [facility] DermPath Lab Received: 05/16/2021 08:12 AM Pathologist: Claire Díaz MD Specimen: Skin, right clavicle 1:32 PM CDT DERMATOPATHOLOGY LABORATORY Final Diagnosis Specimen A. SKIN, right clavicle: BASAL CELL CARCINOMA (C44.519) NOT PRESENT AT MARGIN DERMAL SCAR (L90.5) 1:32 PM CDT DERMATOPATHOLOGY LABORATORY at 1332 CDT Clinical History BCCA nod. Check margins. Path# [id number]. 1:32 PM CDT DERMATOPATHOLOGY LABORATORY Gross Description Specimen A: Received is one formalin filled container labeled with the patient's name and designated right clavicle. The specimen consists of a non-oriented ellipse of skin measuring [id number]. The epidermal surface consists of centrally located 6x5mm previous biopsy site. The margin is inked green. The 12 o'clock and 6 o'clock tips are submitted in cassette 1. The remainder of the ellipse is serially sectioned and submitted in cassette 2-3. Jar 0. 1:32 PM CDT DERMATOPATHOLOGY LABORATORY Microscopic Description Specimen A. SKIN, right clavicle: Within the dermis there are aggregates of basaloid cells with a high nuclear to cytoplasmic ratio and peripheral palisading. This lesion is not present at the margin of the specimen. There are fibroblasts and collagen bundles oriented parallel to the skin surface with elongated blood vessels, some of which are oriented perpendicular to the skin surface. 1:32 PM CDT DERMATOPATHOLOGY LABORATORY Disclaimer An external and internal positive and negative controls are appropriate for the histochemical, immunohistochemical and immunofluorescence stain(s) in this case (if any), except where stated explicitly. The performance characteristics of the stain(s) cited in this report were developed and its performance characteristic determined by the Dermatopathology Laboratory at [facility], directed by Dr. Clarita Jean. These tests need not be, and therefore are not, approved by the [place] Food and Drug Administration. The tests are used for clinical purposes. Billing Codes Specimen Charges Stain Charges 82441 1 1:32 PM CDT DERMATOPATHOLOGY LABORATORY Embedded Images 1:32 PM CDT DERMATOPATHOLOGY LABORATORY Pathology/Cytolog y TISSUE SPECIMEN FROM SKIN / Unknown 05/14/2021 05/16/2021 8:12 AM CDT us Domingo Pope MD LAB - PATHOLOGY/CYTOLOGY ORDER GRETA Final Result DERMATOPATHOLOGY LABORATORY [facility] - Department of Dermatology [facility] Specialized Medicine [facility] [facility], [address]rd Floor [address] [phone] documented in this encounter Visit Diagnoses Not on filedocumented in this encounter Care Teams Grocery Clerk Relationship Specialty Start Date End Date Rajiv Swan MD [facility] [place] [address] PCP - General 12/25/21 documented as of this encounter
--- OUTSIDE RECORDS SUMMARY | 2025-06-18 11:55 | XMS_ITS | Data Portability ---
Author Organization [place] [facility], Main Office Address [address] [place] [address] Care Team Providers Care Switch Foreman Name Role Phone DEBORAH SWAN Primary Care Provider DEBORAH SWAN Referring Provider Assessment Encounter Date Assessment Date Assessment LastModified by Organization Details LastModified Time 04/19/2023 04/19/2023 HPI: Patient returns. He is here for his 2 month follow-up his right anterior total hip arthroplasty. He is doing fine. He is having no complaints. He has been active without any notice of his hip. Very happy with his results. He has been doing yd work again without any symptoms. Physical exam: Patient is walking very well today. He has no limp. He has increased swelling in either lower extremity. Impression: Patient is doing well 2 months out right anterior total hip arthroplasty. At this point plan on seeing him back at his 1 year anniversary or sooner if he has problems. Long-term risk of infection was discussed. [email or web address] Not available 04/19/2023 13:50:10 Plan of Treatment Reminders Order Date Submit Date Provider Last Modified By Organization Details Last Modified Time Details Appointments None recorded . Lab PSA, serum or plasma 025 12/06/19 25 [email or web address] [facility], [address], [place], [address], 5 08:12:03 CBC w/ auto diff 025 12/06/19 25 [email or web address] [facility], [address], [place], [address], 5 08:12:02 CMP, serum or plasma 025 12/06/19 25 [email or web address] [facility], [address], [place], [address], 5 08:12:02 lipid panel, serum 025 12/06/19 25 [email or web address] [facility], [address], [place], [address], 5 08:12:02 TSH, serum or plasma 025 12/06/19 25 [facility], [address], [place], [address], 5 08:12:03 T4, free, serum 025 12/06/19 25 [email or web address] [facility], [address], [place], [address], 5 08:12:03 PSA, serum or plasma 024 05/02/20 24 CALLUM [facility], [address], [place], [address], 4 07:51:45 PSA, serum or plasma 024 10/19/19 24 [email or web address] [facility], [address], [place], [address], 4 17:28:25 CBC w/ auto diff 024 10/19/19 24 [email or web address] [facility], [address], [place], [address], 4 17:28:24 CMP, serum or plasma 024 10/19/19 24 [facility], [address], [place], [address], 4 17:28:24 TSH, serum or plasma 024 10/19/19 24 [email or web address] [facility], [address], [place], [address], 4 17:28:24 T4, free, serum 024 10/19/19 24 [email or web address] [facility], [address], [place], [address], 4 17:28:25 lipid panel, serum 024 10/19/19 24 [email or web address] [facility], [address], [place], [address], 4 17:28:25 Referral None recorded . Procedures None recorded . Surgeries None recorded . Imaging None recorded . Medication Orders None recorded . Patient TargetsNo targets recorded. Patient Instructions Encounter Date Encounter Id Patient Instructions Last Modified By Organization Details Last Modified Time 04/20/2023 [id number] Follow-up essent ial hypertension -hyperlipidemia -PSA elevation. Will continue on current medication can hold off on any other blood work. Will try to set up with aortogram which the states he is having a harder time hearing. He even admits that he is having a hard time and must speak louder. Will continue on current Rx follow-up in six months Portions of the record may have been created with voice recognition software. Occasional wrong-word or s ound-a-like substitutions may have occurred due to the inherent limitations of voice recognition software. Read the chart carefully and recognize, using context, where substitutions have occurred. Audiogram Next Appt: 6 Months Approximate Date: 10/17/2023 [email or web address] Not available 04/20/2023 16:22:08 10/19/2023 [id number] Follow-up hypertension, hyperlipidemia degenerative arthritis all clinically stable. Will continue on current medication. Is due for blood work. Will check a CBC, CMP, lipid, thyroid and PSA. Continue on current Rx follow-up in six months. Portions of the record may have been created with voice recognition software. Occasional wrong-word or s ound-a-like substitutions may have occurred due to the inherent limitations of voice recognition software. Read the chart carefully and recognize, using context, where substitutions have occurred. [email or web address] Not available 10/19/2023 10:51:22 05/02/2024 [id number] Follow-up essent ial hypertension, hyperlipidemia and PSA elevation. No interval complaints of any new problems. Will continue on current medication. Does not need any blood work with the exception of the PSA. Continue on current Rx follow-up in six months. Portions of the record may have been created with voice recognition software. Occasional wrong-word or s ound-a-like substitutions may have occurred due to the inherent limitations of voice recognition software. Read the chart carefully and recognize, using context, where substitutions have occurred. Next Appointment: 6 Months Approximate Date: 10/29/2024 Portions of the record may have been created with voice recognition software. Occasional wrong-word or s ound-a-like substitutions may have occurred due to the inherent limitations of voice recognition software. Read the chart carefully and recognize, using context, where substitutions have occurred. [email or web address] Not available 05/02/2024 11:13:43 12/05/2024 [id number] Follow-up for hypertension, hyperlipidemia and osteoarthritis all clinically stable. Check blood work in the form of CBC, CMP, lipid, thyroid and PSA. Continue on current Rx follow-up in six months Additional Orders - Directives - Recommendations 1. will be due at the end of December for his follow-up colonoscopy Follow Up: 6 Months Approximate Date: 06/03/2025 Portions of record are template driven. When necessary additional context will be provided. Additionally some portions have been created with voice recognition software. Occasional wrong-word or s ound-a-like substitutions may have occurred due to the inherent limitations of voice recognition software. Read the chart carefully and recognize, using context, where substitutions may have occurred. Created: Deborah Swan M.D. 12.05.2024 01:55 PM [email or web address] Not available 12/05/2024 14:55:57 Reason for Referral None Reported. Results Created Date Observation Date Name Description Value Unit Range Abnormal Flag Note LastModifiedBy Organization Detail LastModifiedTime 11/08/19 24 11/11/2023 LIPID PANEL , STAND MERON cholesterol, total 198 mg/dL <200 normal Not Available [facility] [address] [address] [place], [address], 11/11/2023 19:48:02 11/08/19 24 11/11/2023 LIPID PANEL , STAND MERON HDL cholesterol 68 mg/dL > or = 40 normal Not Available [facility] [address] [place], [address], 11/11/2023 19:48:02 11/08/19 24 11/11/2023 LIPID PANEL , STAND MERON triglyceride s 65 mg/dL <150 normal Not Available [facility] [address] [address] [place], [address], 11/11/2023 19:48:02 11/08/19 24 11/11/2023 LIPID PANEL , STAND MERON LDL-choleste rol 114 mg/dL _(vanda c) high Refer ence range : <100 Kayleen able range <100 mg/dL for prima ry preve ntion ; <70 mg/dL for patie nts with CHD or diabe tic patie nts with > or = 2 CHD risk facto rs. LDL-C is now calcu lated using the Lauren bell-Hop mian stuart n, which is a valid ated novel alpa huddleston accur acy than the Fried oliverio equat ion in the estim ation of LDL-C . Lauren bell SS et al. PATRICK. 2013; 310(1 9): 2061- 2068 (http ://ed ucati on.Shantal centenos. com/f aq/FA Q164) Not Available [facility] [address] [place], [address], 11/11/2023 19:48:02 11/08/19 24 11/11/2023 LIPID PANEL , STAND MERON chol/HDLC ratio 2.9 (calc ) <5.0 normal Not Available [facility] [address] [place], [address], 11/11/2023 19:48:02 11/08/19 24 11/11/2023 LIPID PANEL , STAND MERON non HDL cholesterol 130 mg/dL _(vanda c) <130 high For patie nts with diabe nick plus 1 major ASCVD risk facto r, treat ing to a non-H DL-C goal of <100 mg/dL (LDL- C of <70 mg/dL ) is devante haq optio n. Not Available [address] [address] [place], [address], 11/11/2023 19:48:02 11/08/19 24 11/11/2023 COMPR EHENS JENNIFER METAB OLIC PANEL glucose 94 mg/dL 65-99 normal Fasti ng refer ence inter merlyn Not Available [address] [place], [address], 11/11/2023 19:48:03 11/08/19 24 11/11/2023 COMPR EHENS JENNIFER METAB OLIC PANEL urea nitrogen (BUN) 16 mg/dL 7-25 normal Not Available [address] [address] [place], [address], 11/11/2023 19:48:03 11/08/19 24 11/11/2023 COMPR EHENS JENNIFER METAB OLIC PANEL creatinine 0.97 mg/dL 0.70-1 .35 normal Not Available [address], [address], 11/11/2023 19:48:03 11/08/19 24 11/11/2023 COMPR EHENS JENNIFER METAB OLIC PANEL eGFR 85 mL/mi n/1.7 3m2 > or = 60 normal Not Available [address], [address], 11/11/2023 19:48:03 11/08/19 24 11/11/2023 COMPR EHENS JENNIFER METAB OLIC PANEL BUN/creatini ne ratio SEE NOTE: (calc ) 6-22 Not Repor jeniffer: BUN and Creat inine are withi n refer ence range . Not Available [facility] [address] [address], [place], [address], 11/11/2023 19:48:03 11/08/19 24 11/11/2023 COMPR EHENS JENNIFER METAB OLIC PANEL sodium 140 mmol/ L 135-14 6 normal Not Available [address], [address], 11/11/2023 19:48:03 11/08/19 24 11/11/2023 COMPR EHENS JENNIFER METAB OLIC PANEL potassium 4.5 mmol/ L 3.5-5. 3 normal Not Available [address], [address], 11/11/2023 19:48:03 11/08/19 24 11/11/2023 COMPR EHENS JENNIFER METAB OLIC PANEL chloride 102 mmol/ L 98-110 normal Not Available [address], [address], 11/11/2023 19:48:03 11/08/19 24 11/11/2023 COMPR EHENS JENNIFER METAB OLIC PANEL carbon dioxide 27 mmol/ L 20-32 normal Not Available [address], [address], 11/11/2023 19:48:03 11/08/19 24 11/11/2023 COMPR EHENS JENNIFER METAB OLIC PANEL calcium 9.8 mg/dL 8.6-10 .3 normal Not Available [address], [address], 11/11/2023 19:48:03 11/08/19 24 11/11/2023 COMPR EHENS JENNIFER METAB OLIC PANEL protein, total 6.8 g/dL 6.1-8. 1 normal Not Available [address], [address], 11/11/2023 19:48:03 11/08/19 24 11/11/2023 COMPR EHENS JENNIFER METAB OLIC PANEL albumin 4.3 g/dL 3.6-5. 1 normal Not Available [address], [address], 11/11/2023 19:48:03 11/08/19 24 11/11/2023 COMPR EHENS JENNIFER METAB OLIC PANEL globulin 2.5 g/dL_ (calc ) 1.9-3. 7 normal Not Available [address], [address], 11/11/2023 19:48:03 11/08/19 24 11/11/2023 COMPR EHENS JENNIFER METAB OLIC PANEL albumin/glob ulin ratio 1.7 (calc ) 1.0-2. 5 normal Not Available [address], [address], 11/11/2023 19:48:03 11/08/19 24 11/11/2023 COMPR EHENS JENNIFER METAB OLIC PANEL bilirubin, total 0.7 mg/dL 0.2-1. 2 normal Not Available [address], [address], 11/11/2023 19:48:03 11/08/19 24 11/11/2023 COMPR EHENS JENNIFER METAB OLIC PANEL alkaline phosphatase 79 U/L 35-144 normal Not Available [address], [address], 11/11/2023 19:48:03 11/08/19 24 11/11/2023 COMPR EHENS JENNIFER METAB OLIC PANEL AST 16 U/L 10-35 normal Not Available [address], [address], 11/11/2023 19:48:03 11/08/19 24 11/11/2023 COMPR EHENS JENNIFER METAB OLIC PANEL ALT 17 U/L 9-46 normal Not Available [address] [place], [address], 11/11/2023 19:48:03 11/08/19 24 11/11/2023 PSA, POST- PROST ATECT DELILAH PSA, icma 5.56 NG/mL REFER ENCE RANGE S for PSA: LESS THAN 0.10 ng/mL AFTER RADIC AL PROST ATECT DELILAH. 4.0 ng/mL OR LESS IN HEALT HY MALES WITHO UT PROST ATECT DELILAH. PSA value s obtai luis enrique with diffe rent assay metho ds or kits canno t be used inter [facility] . This test was perfo rmed using the Beck an Coult er DxI metho d. PSA, ICMA is not to be used as a diagn ostic proce dure witho ut confi rmati on of the diagn osis by anoth er estab lishe d produ ct or proce dure. The lower limit of accur ate quant ifica tion for this assay is 0.02 ng/mL . PSA value s less than 0.02 ng/mL canno t be accur ately measu red and will be repor jeniffer as less than 0.02 ng/mL . Speci mens with PSA level s below the lower limit of accur ate quant ifica tion shoul d be consi dered as negat jennifer. In patie nts with a negat jennifer resul t for post prost atect delialh PSA, seria l monit oring of PSA level s at regul ar inter vals, along with physi vanda exami natio ns and other tests , may help to detec t recur rent prost ate cance r. Not Available [facility] [address] [place], [address], 11/11/2023 19:48:04 11/08/1911/11/2023 CBC (INCL UDES DIFF/ PLT) white blood cell count 6.8 thous and/u L 3.8-10 .8 normal Not Available [facility] [address] [place], [address], 11/11/2023 19:48:05 11/08/19 24 11/11/2023 CBC (INCL UDES DIFF/ PLT) red blood cell count 5.09 yelitza on/uL 4.20-5 .80 normal Not Available [address], [address], 11/11/2023 19:48:05 11/08/19 24 11/11/2023 CBC (INCL UDES DIFF/ PLT) hemoglobin 15.7 g/dL 13.2-1 7.1 normal Not Available [address], [address], 11/11/2023 19:48:05 11/08/1911/11/2023 CBC (INCL UDES DIFF/ PLT) hematocrit 47.4 % 38.5-5 0.0 normal Not Available [address], [address], 11/11/2023 19:48:05 11/08/19 24 11/11/2023 CBC (INCL UDES DIFF/ PLT) MCV 93.1 fL 80.0-1 00.0 normal Not Available [address], [address], 11/11/2023 19:48:05 11/08/19 24 11/11/2023 CBC (INCL UDES DIFF/ PLT) MCH 30.8 pg 27.0-3 3.0 normal Not Available [address], [address], 11/11/2023 19:48:05 11/08/19 24 11/11/2023 CBC (INCL UDES DIFF/ PLT) MCHC 33.1 g/dL 32.0-3 6.0 normal Not Available [address], [address], 11/11/2023 19:48:05 11/08/19 24 11/11/2023 CBC (INCL UDES DIFF/ PLT) RDW 12.1 % 11.0-1 5.0 normal Not Available [address], [address], 11/11/2023 19:48:05 11/08/19 24 11/11/2023 CBC (INCL UDES DIFF/ PLT) platelet count 287 thous and/u L 140-40 0 normal Not Available [address], [address], 11/11/2023 19:48:05 11/08/19 24 11/11/2023 CBC (INCL UDES DIFF/ PLT) MPV 9.9 fL 7.5-12 .5 normal Not Available [address], [address], 11/11/2023 19:48:05 11/08/19 24 11/11/2023 CBC (INCL UDES DIFF/ PLT) absolute neutrophils 3448 cells /uL 1500-7 800 normal Not Available [address], [address], 11/11/2023 19:48:05 11/08/19 24 11/11/2023 CBC (INCL UDES DIFF/ PLT) absolute lymphocytes 2264.4 cells /uL 850-39 00 normal Not Available [address], [address], 11/11/2023 19:48:05 11/08/19 24 11/11/2023 CBC (INCL UDES DIFF/ PLT) absolute monocytes 734 cells /uL 200-95 0 normal Not Available [facility] [address], [address], 11/11/2023 19:48:05 11/08/19 24 11/11/2023 CBC (INCL UDES DIFF/ PLT) absolute eosinophils 272 cells /uL 15-500 normal Not Available [facility] [address], [address], 11/11/2023 19:48:05 11/08/19 24 11/11/2023 CBC (INCL UDES DIFF/ PLT) absolute basophils 82 cells /uL 0-200 normal Not Available [address], [address], 11/11/2023 19:48:05 11/08/19 24 11/11/2023 CBC (INCL UDES DIFF/ PLT) neutrophils 50.7 % normal Not Available [address], [address], 11/11/2023 19:48:05 11/08/19 24 11/11/2023 CBC (INCL UDES DIFF/ PLT) lymphocytes 33.3 % normal Not Available [address], [address], 11/11/2023 19:48:05 11/08/19 24 11/11/2023 CBC (INCL UDES DIFF/ PLT) monocytes 10.8 % normal Not Available [facility] [address], [address], 11/11/2023 19:48:05 11/08/19 24 11/11/2023 CBC (INCL UDES DIFF/ PLT) eosinophils 4.0 % normal Not Available [facility] [address], [address], 11/11/2023 19:48:05 11/08/19 24 11/11/2023 CBC (INCL UDES DIFF/ PLT) basophils 1.2 % normal Not Available [facility] [address], [address], 11/11/2023 19:48:05 11/08/19 24 11/11/2023 T4, FREE T4, free 1.2 NG/dL 0.8-1. 8 normal Not Available [facility] [address], [address], 11/11/2023 19:48:06 11/08/19 24 11/11/2023 TSH TSH 1.01 mIU/L 0.40-4 .50 normal Not Available [facility] [address] [place], [address], 11/11/2023 19:48:07 05/08/20 24 05/09/2024 PSA, TOTAL PSA, total 4.47 NG/mL < or = 4.00 high The total PSA value from this assay syste m is stand ardiz ed again st the WHO stand meron. The test resul t will be appro ximat raul 20% lower when jagdeep red to the equim olar- stand ardiz ed total PSA (Desouza man Coult er). Jagdeep rison of seria l PSA resul ts shoul d be inter prete d with this fact in mind. This test was perfo rmed using the MacroCure chemi lumin escen t metho d. Value s obtai luis enrique from diffe rent assay metho ds canno t be used inter shirley eably . PSA level s, regar dless of value , shoul d not be inter prete d as absol kletsel dehe wintun evide nce of the prese nce or absen ce of disea se. Not Available [facility] [address] [place], [address], 05/09/2024 07:51:45 03/19/20 23 XR, hip + pelvi s, unila teral No observ ation record ed. [email or web address] [facility] [place] [address], [place], [address], 03/19/2023 13:05:16 Result Notes None recorded. Problems Name Problem SNOMED Code Status Onset Date Resolution Date Notes Provider Name and Address Organization Details Recorded Time Hyperchole sterolemia 25680101 Active Not Available [facility] 3 19:39:03 Prostate specific antigen outside reference range 541584033 Active Not Available [facility] 3 19:39:03 Essential hypertensi on 70578574 Active Not Available [facility] 3 19:39:03 Skin lesion 71239377 Active Not Available [facility] 3 19:39:03 Screening for malignant neoplasm of colon Active 2021 Not Available [facility] 3 19:39:03 Colorectal cancer detected by DNA-based stool screening 024097266 Active 2021 Not Available [facility] 3 19:39:03 Pain of right hip joint 0753783447810 02 Active 2022 Not Available [facility] 3 19:39:03 Disorder of prostate 20077460 Active 2022 Not Available [facility] 3 19:39:03 Osteoarthr itis 600546032 Active 2022 Not Available [facility] 3 19:39:03 Bilateral hearing loss 41301747 Active 2022 OSMANI Garcia [facility] 3 16:26:32 Problem Notes None recorded. Medical Equipment None Reported. Allergies No known drug allergies Medications Name Sig Start Date Stop Date Status Note LastModified by Organization Details LastModified Time celecoxib 200 mg capsule TAKE 1 CAPSULE BY MOUTH ONCE DAILY 02/22 completed Not Available Not Available Not Available amoxicillin 500 mg capsule TAKE 4 CAPSULES BY MOUTH ONE HOUR PRIOR TO APPOINTME NT 02/22 completed Not Available Not Available Not Available ketoconazol e 2 % shampoo APPLY TOPICALLY TO SCALP THREE TIMES A WEEK 04/19 completed Not Available Not Available Not Available lisinopril 20 mg tablet TAKE 1 TABLET BY MOUTH ONCE DAILY 10/20 completed Not Available Not Available Not Available tramadol 50 mg tablet TAKE 1 TABLET BY MOUTH EVERY 6 HOURS active Not Available Not Available No t Available amoxicillin 875 mg tablet TAKE 1 TABLET BY MOUTH EVERY 12 HOURS active Not Available Not Available No t Available alprazolam 0.25 mg tablet Take 1 tablet 3 times a day by oral route as needed. DX: F41.9 02/22 completed Not Available Not Available Not Available baclofen 10 mg tablet Take 1 tablet 4 times a day by oral route. 10/20 completed Not Available Not Available Not Available cephalexin 500 mg capsule 02/22 completed Not Available Not Available Not Available diclofenac sodium 75 mg tablet,regi yed release Take 1 tablet twice a day by oral route. 03/19 completed Not Available Not Available Not Available lisinopril 40 mg tablet TAKE 1 TABLET BY MOUTH DAILY active Not Available Not Available No t Available oxycodone 5 mg tablet 02/22 completed Not Available Not Available Not Available sildenafil (pulmonary hypertensio n) 20 mg tablet TAKE 1 TO 5 TABLETS BY MOUTH ONCE DAILY NEEDED active Not Available Not Available No t Available Eliquis 2.5 mg tablet TAKE 1 TABLET BY MOUTH TWICE A DAY 04/19 completed Not Available Not Available Not Available Vitals Date Recorded Body height Body mass index (BMI) Body weight Heart rate Body temperature Oxygen saturation Oxygen saturation in Arterial blood by Pulse oximetry Systolic And Diastolic Provider Name and Address Organization Details Last Updated DateTime 4 170.18 cm 24.4 kg/m2 13344.4 1 g 68 /min 97 [degF] 99 % 99 % 120/78 mm[Hg] Lizzeth Nilay [employer] [facility] 4 10:35:25 Date Recorded Body height Body mass index (BMI) Body weight Heart rate Body temperature Oxygen saturation Oxygen saturation in Arterial blood by Pulse oximetry Systolic And Diastolic Provider Name and Address Organization Details Last Updated DateTime 5 170.18 cm 23.5 kg/m2 53465.8 6 g 68 /min 97 [degF] 98 % 98 % 124/78 mm[Hg] Lizzeth Armenta [employer] [facility] 5 14:34:20 Date Recorded Body height Provider Name an d Address Organization Details Last Updated DateTime 04/19/2023 167.64 cm STEFAN Montanez [facility] [employer] [facility] 04/19/2023 13:39:09 Date Recorded Body height Body mass index (BMI) Body weight Heart rate Body temperature Oxygen saturation Oxygen saturation in Arterial blood by Pulse oximetry Systolic And Diastolic Provider Name and Address Organization Details Last Updated DateTime 3 170.18 cm 23 kg/m2 18329.0 8 g 75 /min 97 [degF] 98 % 98 % 122/78 mm[Hg] Lizzethkervin Armenta [employer] [facility] 3 15:57:08 Date Recorded Body height Body mass index (BMI) Body weight Heart rate Body temperature Oxygen saturation Oxygen saturation in Arterial blood by Pulse oximetry Systolic And Diastolic Provider Name and Address Organization Details Last Updated DateTime 4 170.18 cm 23.6 kg/m2 15647.4 5 g 76 /min 97 [degF] 97 % 97 % 124/80 mm[Hg] STEFAN Gann [facility] 4 10:39:42 Social History Question Answer Notes LastModified by [employer] Details LastModified Time Tobacco Smoking Status Never Smoker Not Available [facility] 10/07/2022 14:16:22 Do You Have An Advance Directive? No [id number] Information not available 10/07/2022 What Type Of Diet Are You Following? REGULAR [id number] Information not available 10/07/2022 Are There Any Guns Present In Your Home? No [id number] Information not available 10/07/2022 What Was The Date Of Your Most Recent Tobacco Screening? 10/11/2020 [id number] Information not available 10/07/2022 Do You Use Sunscreen Routinely? No [id number] Information not available 10/07/2022 Sex: Unknown Functional Status Question Answer Note LastModified by [employer] Details LastModified Time What is your level of alcohol consumption? Occasional [id number] Information not available 10/07/2022 Do you or have you ever used e-cigarettes or vape? Never used electronic cigarettes [id number] Information not available 10/07/2022 What is your exercise level? None [id number] Information not available 10/07/2022 Mental Status None recorded. Family History Relationship Description Onset Age of this Age Resolved Age Notes LastModified by Organization Details LastModified Time Mother Hypertensive disorder [email or web address] Not available 2022 09:07:57 Notes:Mother 83 HTN , COPD, Osteoporosis and ASHD Father living 93 in good health Has three brothers and one sister all living and in good health. Medical History Condition Response NERVE DISEASE N BLINDNESS N RHEUMATIC FEVER N KIDNEY STONES N BLADDER PROBLEMS N OTHER # 1 N POLIO N LUNG DISEASE/DISORDER N COPD N RADIATION / CHEMOTHERAPY N Other # 2 N BLOOD DISEASES N SURGERY N EAR OR HEARING PROBLEMS N MUMPS N DEPRESSION (INCLUDING POST ) N BOWEL PROBLEMS N STROKE/TIA N ULCERS N BENIGN PROSTATIC HYPERPLASIA N MEASLES N MYOCARDIAL INFARCTION N OBESITY N GERD/NAUSEA N ANEURYSM N URINARY/BLADDER/KIDNEY PROBLEMS N CORONARY ARTERY DISEASE (CAD) N INPATIENT PSYCH CARE N ADDICTION CONCERNS N Impotence Y ENDOMETRIOSIS N USE OF BLOOD THINNERS N SKIN PROBLEMS N GASTROINTESTINAL DISORDER N PERIPHERAL VASCULAR DISEASE N MUSCLE,JOINT OR BONE PROBLEMS N GASTROINTESTINAL BLEEDING N BLOOD CLOTS N ASTHMA N CATARACTS N ERECTILE DYSFUNCTION N VARICOSITIES N GI PROBLEMS N Low Testosterone N INFERTILITY N AIDS/HIV N LIVER DISEASE N MALE HYPOGONADISM N HYPERTENSION Y Deficiency N ANXIETY DISORDER N BLOOD TRANSFUSION N ANEMIA/BLOOD DISORDER N CHRONIC EAR INFECTIONS N BRONCHITIS N TUBERCULOSIS N GLAUCOMA N DIVERTICULITIS N SLEEP APNEA N CHICKENPOX N INFECTIOUS DISEASE N PROSTATE Y HEART ARRHYTHMIA N INSOMNIA N HIGH CHOLESTEROL / HYPERLIPIDEMIA N EYE PROBLEMS N HYPERTHYROIDISM N NEUROLOGICAL PROBLEMS N EDEMA N CHRONIC PAIN SYNDROME N HYPOTHYROIDISM N CAROTID BLOCKAGE N CONSTIPATION N BACK / NECK PROBLEMS N HAVE YOU BEEN HOSPITALIZED OR SEEN IN [facility] IN THE PAST YEAR ? N ATHEROSCLEROSIS N BREAST PROBLEMS N DIALYSIS N ECZEMA N OSTEOPOROSIS N ARTHRITIS N NO SIGNIFICANT PAST MEDICAL HISTORY N APPENDICITIS N DIABETES, TYPE N BAD TEETH N ENT N HEARTBURN / REFLUX N AUTISM SPECTRUM DISORDER (ASD) N HEPATITIS / LIVER DISEASE N PULMONARY DISEASE N GOUT N SLEEP DISORDER N ALZHEIMER'S DISEASE N Brain Problems N DEMENTIA N HERPES N SEIZURES/EPILEPSY N HEADACHES/MIGRAINES N VASCULAR DISEASE N PACEMAKER N Blood Disorder N DIZZINESS N HEART DISEASE/HEART PROBLEMS N KIDNEY DISEASE N MULTIPLE SCLEROSIS N CANCER: SPECIFY N CARDIAC ARRHYTHMIA N ANESTHESIA COMPLICATIONS N ATRIAL FIBRILLATION N Gall Stones N PULMONARY EMBOLISM N AUTOIMMUNE DISEASE N Past Encounters Encounter ID Performer Location Encounter Start Date Encounter Closed Date Diagnosis/Indication Diagnosis SNOMED-CT Code Diagnosis ICD10 Code Diagnosis IMO Codes Diagnosis Note [id number] Deborah Swan MD [facility] [place] [address] [place] [address] 10/11/2020 00:00:00 10/11/2020 15:25:01 [id number] Deborah Swan MD [facility] [place] [address] [facility] [place] [address] 04/11/2021 00:00:00 04/11/2021 15:18:48 [id number] Deborah Swan MD [facility] Internal Med [place] [address] [facility] [address] , [place] [address] 10/10/2021 00:00:00 10/10/2021 15:12:19 [id number] Deborah Swan MD [facility] Internal Med [place] [address] [facility] [address] , [place] [address] 04/10/2022 00:00:00 04/10/2022 15:21:39 [id number] Deborah Swan MD [facility] Internal Med [place] [address] [facility] [address] , [place] [address] 10/20/2022 15:08:28 10/20/2022 16:16:29 Essential hypertension 66556481 I10 Hypercholesterolemia 136 11546 E78.00 Pain of ri ght hip joint 8754868653 92695 M25.551 Disorder of prostate 302 86898 N42.9 [id number] Fran Pimentel MD [facility] [place] [place] [address] [place] [address] 11/20/2022 08:55:18 11/23/2022 09:42:02 Pain of right hip joint 8474316454 04370 M25.551 [id number] Fran Pimentel MD [facility] [place] [address] [place] [address] 01/22/2023 08:44:01 01/25/2023 11:13:20 Osteoarthritis 556627878 M16.11 [id number] Deborah Swan MD [facility] Internal [place] [address] [facility] [address] , [place] [address] 01/26/2023 11:13:27 01/26/2023 12:03:08 Essential hypertension 40810008 I10 Hypercholesterolemia 136 02023 E78.00 Osteoarthritis 503646176 M16.11 [id number] Fran Pimentel MD [facility] [place] [address] [place] [address] 02/22/2023 14:30:39 02/22/2023 15:27:00 History of total replacement of right hip joint 2605655268 09326 Z96.641 [id number] Fran Pimentel MD [facility] [address] [place] [address] 03/19/2023 11:23:47 03/19/2023 15:19:09 History of total replacement of right hip joint 6947530222 48716 Z96.450 [id number] Fran Pimentel MD [facility] [place] [address] [place] [address] 04/19/2023 13:29:41 04/19/2023 13:55:44 History of total replacement of right hip joint 2521996283 67462 Z96.290 [id number] Deborah Swan MD [facility] Internal [place] [address] [place] [address] 04/20/2023 15:13:10 04/20/2023 16:28:43 Essential hypertension 16158799 I10 Hypercholesterolemia 136 49882 E78.00 Prostate s pecific antigen outside reference range 435329185 R97.8 [id number] Deborah Swan MD [facility] Internal [place] [address] , [place] [address] 10/19/2023 10:34:28 10/19/2023 11:08:12 Essential hypertension 30621739 I10 Hypercholesterolemia 136 18279 E78.00 Osteoarthritis 764341761 M16.11 Disorder of prostate 302 46527 N42.9 [id number] Deborah Swan MD [facility] Internal [place] [address] [place] [address] 05/02/2024 10:27:05 05/02/2024 11:19:01 Essential hypertension 32893993 I10 Hypercholesterolemia 136 60191 E78.00 Prostate s pecific antigen outside reference range 710999860 R97.8 [id number] Deborah Swan MD [facility] Primary Care [facility] [address] [facility] [address] [facility] [place] [address] 12/05/2024 14:14:24 12/05/2024 15:07:40 Essential hypertension 51546154 I10 Hypercholesterolemia 136 02613 E78.00 Osteoarthritis 337222748 M16.11 Disorder of prostate 302 12593 N42.9 Health Concerns Section Related Observation LastModified by Organization Detai ls LastModified Time None Recorded Concern Status LastModified by Organization Details LastModified Time None Recorded Advance Directives Directive N: Payers Insurance Date Sequence Insurance Name Policy Number Policy Cummins Covered Member ID Cummins Member ID Guarantor Name 12/08/2024 1 [place] Theron Anurag Ruel [id number] 1 Theron Lipscomb 12/05/2024 2 [employer] (MEDICARE SUPPLEMENT) Theron Lipscomb [id number] Theron Lipscomb Notes Date Note Type Note Provider Name and Address Organization Details Recorded Time 04/20/2023 text/html Patient Name: Theron HernandezalyciaDate Of Service: Wednesday ( 04.20.2023 ): 1955 Age: 67 There has been approximately a 1 lb weight loss since 01/26/2023. This represents approximately a .7% change in weight. Weight change attributable to lifestyle changes. Vital Signs:Blood Pressure: Sitting Rt. Arm 122/78Pulse: Sitting 75 /min and RegularRespirations: 12Height 67 in or 1.7 mWeight 147 lb or 66.7 kgBMI 23.0Temperature: 97 F or 36.1 CPulse Oximetry: 98 % at rest on no oxygen Chief Complaint: Addressed in HPI Problems or conditions discussed in the HPI were the only ones reviewed during the encounter.Only social and family history addressed in the HPI were reviewed during this encounter. Attendant(s): WifeConstitutional and Systemic Symptoms: none Medication Reconciliation: from medication list. Payixjvdkzx25/15/2023 MRI of the lumbar spine shows significant lumbar disease at multiple levels. Degenerative joint disease at multiple levels. L3-L4 findings severe foraminal stenosis at L3-L4 on the right. Mild central canal stenosis noted at L2-L3 and L3-L4. No high-grade central spinal stenosis is noted.10/21/2022: MRI of the right hip severe osteoarthritic changes of the right hip joint with loss of cartilage. Needs to have orthopedic referral. History of Present Illness #1. Essential Hypertension: Stage: Stage I Interval Neurological Complaints no headaches, dizziness, weakness, visual changes, ataxia, aphasia and apraxia. No shortness of breath, orthopnea or cardiovascular symptoms. No other symptoms related to end organ damage. Pressure has been under excellent control. Currently normal. No other end organ symptoms or findings. Therapy reviewed regarding management of hypertension and includes salt restriction and Lisinopril. #2. Type II Hypercholesterolaemia: Currently stopped medication as instructed by physician. No interval complaints of any muscle pain or arthralgia. No significant liver changes with medications. Last lipid panel: fair control. Therapy reviewed regarding treatment of cholesterol management and include diet. #3. History of slightly elevated PSA. Overall is doing well. Will continue with current medications had no other symptomatology. May need to repeat this.:Medication List Reviewed and Reconciled 04/20/2023Lisinopril 40 MG TABLET One DailyDiclofenac Sodium 75 MG TABLET, DELAYED RELEASE One BidSildenafil 20 MG (TABLET - ORAL) PrnSurgical HistoryGanglion Left HandPreventative Testing Confirmed by Our Ogtmmoy3601/25/2023 HAIC10/21/2022 ALBUMIN 4.7 G/DL10/21/2022 PSA 5.17 NG/ML H012/19/2021 COLONOSCOPY ( 3 YEARS ) 5010/23/2021 COLOGUARD 10/23/2024Social HistoryDoes not smokeDrinks sociallyWorks in salesFamily HistoryMother 83 HTN, COPD, Osteoporosis and ASHDFather living 93 in good healthHas three brothers and one sister all living and in good health. Deborah Swan MD [address] [place] [address], [facility] [address], [place], [address], [facility] [employer] 04/20/2023 16:22:25 10/19/2023 text/html Patient Name: Theron Simmonsrosaura Of Service: Wednesday ( 10.19.2023 ): 1955 Age: 68 There has been approximately a 9 lb weight gain since 04/20/2023. This represents approximately a 6.1% change in weight. Weight change attributable to lifestyle changes. Vital Signs:Blood Pressure: Sitting Rt. Arm 120/78Pulse: Sitting 68 /min and RegularRespiratory Rate: 12Height 67 in or 1.7 mWeight 156 lb or 70.8 kgBMI 24.4Temperature: 97 F or 36.1 CPulse Oximetry: 99 % at rest on no oxygen Chief Complaint: Addressed in HPI Problems or conditions discussed in the HPI were the only ones reviewed during the encounter.Only social and family history addressed in the HPI were reviewed during this encounter. Attendant(s): WifeConstitutional and Systemic Symptoms:none Medication Reconciliation: from medication list. Feruudzymea55/15/2023 MRI of the lumbar spine shows significant lumbar disease at multiple levels. Degenerative joint disease at multiple levels. L3-L4 findings severe foraminal stenosis at L3-L4 on the right. Mild central canal stenosis noted at L2-L3 and L3-L4. No high-grade central spinal stenosis is noted. 10/21/2022: MRI of the right hip severe osteoarthritic changes of the right hip joint with loss of cartilage. Needs to have orthopedic referral. History of Present Illness #1. Essential Hypertension: Stage: Stage I Interval Neurological Complaints no headaches. No shortness of breath, orthopnea or cardiovascular symptoms. No other symptoms related to end organ damage. Pressure has been under excellent control. Currently normal. No other end organ symptoms or findings. Therapy reviewed regarding management of hypertension and includes salt restriction and Lisinopril. #2. Type II Hypercholesterolaemia: Currently not taking medication. No interval complaints of any muscle pain or arthralgia. No significant liver changes with medications. Last lipid panel: fair control. Therapy reviewed regarding treatment of cholesterol management and include diet. #3. Hx of DJD stable. No interval complaints of any additional joint pain, swelling or redness. Joints most involved include hips. Medications: NSAIDS The DJD does not interfere with ADL and ambulation. Deborah Swan MD [address] [place] [address], [facility] [address], [place], [address], [facility] - [facility] [employer] 10/19/2023 10:51:38 05/02/2024 text/html Patient Name: Theron LipscombBriante Of Service: Wednesday ( 05.02.2024 ): 1955 Age: 68 There has been approximately a 5 lb weight loss since 10/19/2023. This represents approximately a 3.2% change in weight. Weight change attributable to lifestyle changes. Vital Signs:Blood Pressure: Sitting Rt. Arm 124/80Pulse: Sitting 76 /min and RegularRespiratory Rate: 14Height 67 in or 1.7 mWeight 151 lb or 68.5 kgBMI 23.6Temperature: 97 F or 36.1 CPulse Oximetry: 97 % at rest on no oxygen Chief Complaint: Addressed in HPI Problems or conditions discussed in the HPI were the only ones reviewed during the encounter.Only social and family history addressed in the HPI were reviewed during this encounter. Attendant(s): WifeConstitutional and Systemic Symptoms:none Medication Reconciliation: from medication list. Lpeowgvtlyw51/15/2023 MRI of the lumbar spine shows significant lumbar disease at multiple levels. Degenerative joint disease at multiple levels. L3-L4 findings severe foraminal stenosis at L3-L4 on the right. Mild central canal stenosis noted at L2-L3 and L3-L4. No high-grade central spinal stenosis is noted. 10/21/2022: MRI of the right hip severe osteoarthritic changes of the right hip joint with loss of cartilage. Needs to have orthopedic referral. History of Present Illness #1. Essential Hypertension: Stage: Stage I Interval Neurological Complaints no headaches, dizziness, weakness, visual changes, ataxia, aphasia and apraxia. No shortness of breath, orthopnea or cardiovascular symptoms. No other symptoms related to end organ damage. Pressure has been under excellent control. Currently normal. No other end organ symptoms or findings. Therapy reviewed regarding management of hypertension and includes salt restriction and Lisinopril. #2. History of hypercholesterolaemia: History of the high cholesterol. Not taking any medications and being controlled by diet. No interval complaints of any chest pain, shortness of breath, orthopnea or other cardiovascular complaints. Last lipid panel: fair control #3. Abnormal PSA: History of abnormal PSA. No weight loss, fever, chills, night sweats or other constitutional symptoms. No history of any bone pain. Is followed by a urologist. Active Medication ListLisinopril 40 MG TABLET One DailySildenafil 20 MG (TABLET - ORAL) Prn Surgical [id number] Rt. 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 TEST RESULT RANGE UNITSCBC (INCLUDES DIFF/PLT) Date: 11/08/2023WHITE BLOOD CELL COUNT 6.8 3.8-10.8 THOUSAND/ULHEMOGLOBIN 15.7 13.2-17.1 G/DLHEMATOCRIT 47.4 38.5-50.0 %PLATELET COUNT 287 140-400 THOUSAND/ULCOMPREHENSIV E METABOLIC PANEL Date: 11/08/2023SODIUM 140 135-146 MMOL/LPOTASSIUM 4.5 3.5-5.3 MMOL/LGLUCOSE 94 65-99 MG/DLUREA NITROGEN (BUN) 16 7-25 MG/DLCREATININE 0.97 0.70-1.35 MG/DLEGFR 85 > OR = 60 ML/MIN/1.65M5FSAHXQZRR, TOTAL 0.7 0.2-1.2 MG/DLALKALINE PHOSPHATASE 79 35-144 U/LAST 16 10-35 U/LALT 17 9-46 U/LLIPID PANEL, STANDARD Date: 11/08/2023HOLESTEROL, TOTAL 198 <200 MG/DLTRIGLYCERIDES 65 <150 MG/DLHDL CHOLESTEROL 68 > OR = 40 MG/DLLDL-CHOLESTEROL 114 MG/DL (CALC)PSA, POST-PROSTATECTOMY Date: 4PSA, ICMA 5.56 NG/MLT4, FREE Date: 11/08/2023T4, FREE 1.2 0.8-1.8 NG/DLTSH Date: 11/08/2023TSH 1.01 0.40-4.50 MIU/L Deborah Swan MD [address] [facility], [facility] [address], [place], [address], [place] [facility] [place] 05/02/2024 11:13:58 12/05/2024 text/html Patient Name: Theron Simmonste Of Service: Wednesday ( 12.05.2024 ): 1955 Age: 69 Vital Signs:Blood Pressure: Sitting Rt. Arm 124/78Pulse: Sitting 68 /min and RegularRespiratory Rate: 16Height 67 in or 1.7 mWeight 150 lb or 68.0 kgBMI 23.5Temperature: 97 F or 36.1 CPulse Oximetry: 98 % at rest on no oxygen Chief Complaint: Addressed in HPI Problems or conditions discussed in the HPI were the only ones reviewed during the encounter.Only social and family history addressed in the HPI were reviewed during this encounter. Attendant(s): NoneConstitutional and Systemic Symptoms:none Medication Reconciliation: from medication list. History of Present Illness #1. Essential Hypertension: Stage: Stage I Interval Neurological Complaints no headaches, dizziness, weakness, visual changes, ataxia, aphasia and apraxia. No shortness of breath, orthopnea or cardiovascular symptoms. No other symptoms related to end organ damage. Pressure has been under excellent control. Currently normal. No other end organ symptoms or findings. Therapy reviewed regarding management of hypertension and includes salt restriction and Lisinopril. #2. History of hypertriglyceridemia: History of the high cholesterol. Not taking any medications and being controlled by diet. No interval complaints of any chest pain, shortness of breath, orthopnea or other cardiovascular complaints. Last lipid panel: fair control #3. Hx of DJD stable. No interval complaints of any additional joint pain, swelling or redness. Joints most involved include knees and hips. Medications: NSAIDS The DJD does not interfere with ADL and ambulation. Active Medication ListLisinopril 40 MG TABLET One DailySildenafil 20 MG (TABLET - ORAL) Prn Surgical Robjiou6347-98 Rt. 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 Deborah Swan MD [address] [facility], [facility] [address], [place], [address], [place] [facility] 12/05/2024 14:56:20
== END ==
LOC: ANHLAB 11:05
PROVIDERS: PCP Internal Medicine; Visit Provider Plastic Surgery
DX: C44.519 Basal cell carcinoma of skin of other part of trunk (principal)
CPT/HCPCS: 88305